=== PATIENT | male | born 1990 | race Caucasian/White ===

== ENCOUNTER 2016-12-18 06:35 | Emergency (ER) | payer SELFPAY ==
[2016-12-18] MEDS ORDERED: NORCO, ANEXSIA 5/325MG TABLET (HYDROcodone/ACETAMINOPHEN) As Ordered ONE (08:42)
[2016-12-18] MEDS ORDERED: AMOXICILLIN 500 MG CAP As Ordered ONE (08:42)
--- NOTE | 2016-12-18 08:50 | EDDOCDS ---
Nurse's Notes [facility] Name: Werner Rosas Age: 26 yrs Sex: Male : 1990 Arrival Date: 12/18/2016 Time: 06:35 Bed I2 / M2 Private MD: Diagnosis: Atypical facial pain-left upper dental Presentation: 12/18 07:44 Presenting complaint: Patient states: Pt presents with left upper dental pain x 2 weeks dls worse today. Adult Sepsis Screening: The patient does not have new or worsening altered mentation. Patient's respiratory rate is less than 22. Systolic blood pressure is greater than 100. Patient has a qSOFA score of 0- Negative Sepsis Screen. Suicide/Homicide risk assessment- the patient denies having any suicidal and/or homicidal ideations and does not present with any other emotional, behavioral or mental health complaints. 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 Transition of care: patient was not received from another setting of care. 07:44 Acuity: JOY Level 5 dls 07:44 Method Of Arrival: Walkin/Carried/Asstd dls Triage Assessment: 07:45 General: Appears distressed, well developed, Behavior is cooperative. Pain: Pain dls currently is 8 out of 10 on a pain scale. HIV screening NA for this visit Offered previously. Historical: - Allergies: no known allergies; - Home Meds: 1. none - PMHx: none; - PSHx: Appendectomy; - Social history: Smoking status: Patient uses tobacco products, light tobacco smoker. No barriers to communication noted, The patient speaks fluent Turkish. - Family history: Not pertinent. - : The pt / caregiver states he / she is not on anticoagulants. Home medication list is obtained from the patient. - Exposure Risk Screening:: None identified. Screenin:47 Screening information is obtained from the patient. Primary language is Turkish. Fall dls risk: No risks identified. Assistance ADL's: requires no assistance with activities of daily living. Abuse/DV Screen: The patient / caregiver reports he/she is: not in a situation that causes fear, pain or injury. Nutritional screening: No deficits noted. Advance Directives: Currently, there is no health care proxy. There is no active DNR order. There is no living will. There is no Power of Edge Finisher. Advance directive information has not previously been placed in an [facility] medical record. home support is adequate. Assessment: 08:46 General: See triage note. The patient / caregiver is instructed regarding the plan of dls care and ED course. Vital Signs: 07:51 BP 135 / 77; Pulse 99; Resp 18; Temp 97.8(T); Pulse Ox 99% on R/A; Weight 63.5 kg; dem1 Height 6 ft. 0 in. (182.88 cm); Pain 10/10; 07:51 Body Mass Index 18.99 (63.50 kg, 182.88 cm) dem1 Vitals: 07:45 Log In Time: December 18, 2016 at 06:37. dls ED Course: 06:36 Patient visited by Nuzhat Garcia, Reg. hs2 06:36 Patient moved to Waiting hs2 06:37 Patient visited by Nuzhat Garcia, Reg. hs2 07:45 Triage Initiated dls 07:47 Patient moved to I2 / M2 dls 07:51 Patient visited by Sergo Lynne. dem1 08:34 Kip Elam PA-C is PHCP. cc10 08:34 Vinny Valdez MD is Attending Physician. cc10 08:35 Patient visited by Kip Elam PA-C. cc10 08:35 Patient visited by Kip Elam PA-C. cc10 08:40 Your, Dentist is Referral Physician. cc10 08:47 Accompanied by Significant Other, Patient has correct armband on for positive dls identification. Bed in low position. Call light in reach. 08:49 No IV's were initiated during this patient's visit. No procedures done that require dls assistance. Administered Medications: 08:45 Drug: HYDROcodone-acetaminophen 2 tabs [hydrocodone 5 mg-acetaminophen 325 mg tablet (2 dls tabs)] Route: PO; 08:46 Follow up: Response: Pt left department before re-evaluation is appropriate dls 08:45 Drug: Amoxicillin 500 mg [amoxicillin 500 mg capsule (1 caps)] Route: PO; dls 08:45 Follow up: Response: Confirmed pt not driving.; Pt left department before re-evaluation dls is appropriate Order Results: There are currently no results for this order. Outcome: 08:40 Discharge ordered by Provider. cc10 08:47 The following High Risk Discharge criteria are identified: None. Discharged to home dls ambulatory, with significant other. Condition: stable. Discharge instructions given to patient, Instructed on discharge instructions, follow up and referral plans. medication usage, Demonstrated understanding of instructions, medications, Pt was receptive of discharge instructions/ teaching. Prescriptions given X 2. No special radiology studies were completed. 08:49 Discharge Assessment: Patient awake, alert and oriented x 3. No cognitive and/or dls functional deficits noted. Patient verbalized understanding of disposition instructions. patient administered narcotics - yes. Pt provided with safe discharge. The following High Risk Discharge criteria are identified: None. Discharged to home ambulatory, with significant other. Property sent home with patient. 08:50 Patient left the ED. dls Signatures: Radhika Tucker RN RN dls Sergo Lynne dem1 Kip Elam PA-C PA-C cc10 Nuzhat Garcia, Reg Reg hs2 MTDD
--- NOTE | 2016-12-18 08:50 | EDDOCDS ---
Physician Documentation [facility] Name: Werner Rosas Age: 26 yrs Sex: Male : 1990 Arrival Date: 12/18/2016 Time: 06:35 Bed I2 / M2 Private MD: Disposition: 12/18/16 08:40 Discharged to Home/Self Care. Impression: Atypical facial pain - left upper dental. - Condition is Stable. - Discharge Instructions: Dental Pain. - Prescriptions for Amoxicillin 500 mg Oral Capsule - take 1 capsule by ORAL route every 8 hours for 10 days; 30 tablet. Hydrocodone- Acetaminophen 5-325 mg Oral Tablet - take 1 tablet by ORAL route every 6 hours As needed MDD: 4 tabs; 16 tablet. - Medication Reconciliation, Local Pharmacy Hours, Dental Referral List form. - Follow up: Your, Dentist; When: Call to arrange an appointment; Reason: Wound/Symptom Recheck, Recheck today's complaints, Worsening of conditions, Continuance of care. - Problem is an ongoing problem. - Symptoms are unchanged. Historical: - Allergies: no known allergies; - Home Meds: 1. none - PMHx: none; - PSHx: Appendectomy; - Social history: Smoking status: Patient uses tobacco products, light tobacco smoker. No barriers to communication noted, The patient speaks fluent Kazakh. - Family history: Not pertinent. - : The pt / caregiver states he / she is not on anticoagulants. Home medication list is obtained from the patient. - Exposure Risk Screening:: None identified. Vital Signs: 12/18 07:51 BP 135 / 77; Pulse 99; Resp 18; Temp 97.8(T); Pulse Ox 99% on R/A; Weight 63.5 kg / dem1 139.99 lbs; Height 6 ft. 0 in. (182.88 cm); Pain 10/10; 07:51 Body Mass Index 18.99 (63.50 kg, 182.88 cm) dem1 MDM: 08:40 HYDROcodone-acetaminophen 5 mg-325 mg 2 tabs PO once ordered. cc10 08:40 Amoxicillin 500 mg PO once ordered. cc10 Administered Medications: 08:45 Drug: HYDROcodone-acetaminophen 2 tabs [hydrocodone 5 mg-acetaminophen 325 mg tablet (2 dls tabs)] Route: PO; 08:46 Follow up: Response: Pt left department before re-evaluation is appropriate dls 08:45 Drug: Amoxicillin 500 mg [amoxicillin 500 mg capsule (1 caps)] Route: PO; dls 08:45 Follow up: Response: Confirmed pt not driving.; Pt left department before re-evaluation dls is appropriate Signatures: Radhika Tucker RN RN dls Kip Elam PA-C PA-C cc10 MTDD
--- NOTE | 2016-12-20 09:51 | EDDOCDS ---
Physician Documentation [facility] Name: Werner Rosas Age: 26 yrs Sex: Male : 1990 Arrival Date: 12/18/2016 Time: 06:35 Bed I2 / M2 Private MD: Disposition: 12/18/16 08:40 Discharged to Home/Self Care. Impression: Atypical facial pain - left upper dental. - Condition is Stable. - Discharge Instructions: Dental Pain. - Prescriptions for Amoxicillin 500 mg Oral Capsule - take 1 capsule by ORAL route every 8 hours for 10 days; 30 tablet. Hydrocodone- Acetaminophen 5-325 mg Oral Tablet - take 1 tablet by ORAL route every 6 hours As needed MDD: 4 tabs; 16 tablet. - Medication Reconciliation, Local Pharmacy Hours, Dental Referral List form. - Follow up: Your, Dentist; When: Call to arrange an appointment; Reason: Wound/Symptom Recheck, Recheck today's complaints, Worsening of conditions, Continuance of care. - Problem is an ongoing problem. - Symptoms are unchanged. Historical: - Allergies: no known allergies; - Home Meds: 1. none - PMHx: none; - PSHx: Appendectomy; - Social history: Smoking status: Patient uses tobacco products, light tobacco smoker. No barriers to communication noted, The patient speaks fluent Maori. - Family history: Not pertinent. - : The pt / caregiver states he / she is not on anticoagulants. Home medication list is obtained from the patient. - Exposure Risk Screening:: None identified. Vital Signs: 12/18 07:51 BP 135 / 77; Pulse 99; Resp 18; Temp 97.8(T); Pulse Ox 99% on R/A; Weight 63.5 kg / dem1 139.99 lbs; Height 6 ft. 0 in. (182.88 cm); Pain 10/10; 07:51 Body Mass Index 18.99 (63.50 kg, 182.88 cm) dem1 MDM: 08:40 HYDROcodone-acetaminophen 5 mg-325 mg 2 tabs PO once ordered. cc10 08:40 Amoxicillin 500 mg PO once ordered. cc10 09:45 [facility] Payment Agreement was scanned into [employer] and attached to record. lg 15:43 T-Sheet-- Draft Copy was scanned into [employer] and attached to record. klr Administered Medications: 08:45 Drug: HYDROcodone-acetaminophen 2 tabs [hydrocodone 5 mg-acetaminophen 325 mg tablet (2 dls tabs)] Route: PO; 08:46 Follow up: Response: Pt left department before re-evaluation is appropriate dls 08:45 Drug: Amoxicillin 500 mg [amoxicillin 500 mg capsule (1 caps)] Route: PO; dls 08:45 Follow up: Response: Confirmed pt not driving.; Pt left department before re-evaluation dls is appropriate Signatures: Radhika Tucker RN RN dls Onel Shine, Servando Reg lg Kip Elam, PA-C PA-C cc10 Judie Mcbride The chart was reviewed and I authenticate all verbal orders and agree with the evaluation and treatment provided.Attachments: 09:45 [facility] Payment Agreement lg 15:43 T-Sheet-- Draft Copy klr Chart Complete MTDD
--- NOTE | 2016-12-20 09:51 | EDDOCDS ---
Physician Documentation [facility] Name: Werner Rosas Age: 26 yrs Sex: Male : 1990 Arrival Date: 12/18/2016 Time: 06:35 Bed I2 / M2 Private MD: Disposition: 12/18/16 08:40 Discharged to Home/Self Care. Impression: Atypical facial pain - left upper dental. - Condition is Stable. - Discharge Instructions: Dental Pain. - Prescriptions for Amoxicillin 500 mg Oral Capsule - take 1 capsule by ORAL route every 8 hours for 10 days; 30 tablet. Hydrocodone- Acetaminophen 5-325 mg Oral Tablet - take 1 tablet by ORAL route every 6 hours As needed MDD: 4 tabs; 16 tablet. - Medication Reconciliation, Local Pharmacy Hours, Dental Referral List form. - Follow up: Your, Dentist; When: Call to arrange an appointment; Reason: Wound/Symptom Recheck, Recheck today's complaints, Worsening of conditions, Continuance of care. - Problem is an ongoing problem. - Symptoms are unchanged. Historical: - Allergies: no known allergies; - Home Meds: 1. none - PMHx: none; - PSHx: Appendectomy; - Social history: Smoking status: Patient uses tobacco products, light tobacco smoker. No barriers to communication noted, The patient speaks fluent Swedish. - Family history: Not pertinent. - : The pt / caregiver states he / she is not on anticoagulants. Home medication list is obtained from the patient. - Exposure Risk Screening:: None identified. Vital Signs: 12/18 07:51 BP 135 / 77; Pulse 99; Resp 18; Temp 97.8(T); Pulse Ox 99% on R/A; Weight 63.5 kg / dem1 139.99 lbs; Height 6 ft. 0 in. (182.88 cm); Pain 10/10; 07:51 Body Mass Index 18.99 (63.50 kg, 182.88 cm) dem1 MDM: 08:40 HYDROcodone-acetaminophen 5 mg-325 mg 2 tabs PO once ordered. cc10 08:40 Amoxicillin 500 mg PO once ordered. cc10 09:45 [facility] Payment Agreement was scanned into [employer] and attached to record. lg 15:43 T-Sheet-- Draft Copy was scanned into [employer] and attached to record. klr Administered Medications: 08:45 Drug: HYDROcodone-acetaminophen 2 tabs [hydrocodone 5 mg-acetaminophen 325 mg tablet (2 dls tabs)] Route: PO; 08:46 Follow up: Response: Pt left department before re-evaluation is appropriate dls 08:45 Drug: Amoxicillin 500 mg [amoxicillin 500 mg capsule (1 caps)] Route: PO; dls 08:45 Follow up: Response: Confirmed pt not driving.; Pt left department before re-evaluation dls is appropriate Signatures: Radhika Tucker RN RN dls Onel Shine, Servando Reg lg Kip Elam, PA-C PA-C cc10 Judie Mcbride The chart was reviewed and I authenticate all verbal orders and agree with the evaluation and treatment provided.Attachments: 09:45 [facility] Payment Agreement lg 15:43 T-Sheet-- Draft Copy klr Chart Complete MTDD
--- NOTE | 2016-12-20 09:51 | EDDOCDS ---
Nurse's Notes [facility] Name: Werner Rosas Age: 26 yrs Sex: Male : 1990 Arrival Date: 12/18/2016 Time: 06:35 Bed I2 / M2 Private MD: Diagnosis: Atypical facial pain-left upper dental Presentation: 12/18 07:44 Presenting complaint: Patient states: Pt presents with left upper dental pain x 2 weeks dls worse today. Adult Sepsis Screening: The patient does not have new or worsening altered mentation. Patient's respiratory rate is less than 22. Systolic blood pressure is greater than 100. Patient has a qSOFA score of 0- Negative Sepsis Screen. Suicide/Homicide risk assessment- the patient denies having any suicidal and/or homicidal ideations and does not present with any other emotional, behavioral or mental health complaints. Status: Patient is not a hotel or motel room service supervisor or dependent. Transition of care: patient was not received from another setting of care. 07:44 Acuity: JOY Level 5 dls 07:44 Method Of Arrival: Walkin/Carried/Asstd dls Triage Assessment: 07:45 General: Appears distressed, well developed, Behavior is cooperative. Pain: Pain dls currently is 8 out of 10 on a pain scale. HIV screening NA for this visit Offered previously. Historical: - Allergies: no known allergies; - Home Meds: 1. none - PMHx: none; - PSHx: Appendectomy; - Social history: Smoking status: Patient uses tobacco products, light tobacco smoker. No barriers to communication noted, The patient speaks fluent Maori. - Family history: Not pertinent. - : The pt / caregiver states he / she is not on anticoagulants. Home medication list is obtained from the patient. - Exposure Risk Screening:: None identified. Screenin:47 Screening information is obtained from the patient. Primary language is Maori. Fall dls risk: No risks identified. Assistance ADL's: requires no assistance with activities of daily living. Abuse/DV Screen: The patient / caregiver reports he/she is: not in a situation that causes fear, pain or injury. Nutritional screening: No deficits noted. Advance Directives: Currently, there is no health care proxy. There is no active DNR order. There is no living will. There is no Power of Physician'S Aide. Advance directive information has not previously been placed in an [facility] medical record. home support is adequate. Assessment: 08:46 General: See triage note. The patient / caregiver is instructed regarding the plan of dls care and ED course. Vital Signs: 07:51 BP 135 / 77; Pulse 99; Resp 18; Temp 97.8(T); Pulse Ox 99% on R/A; Weight 63.5 kg; dem1 Height 6 ft. 0 in. (182.88 cm); Pain 10/10; 07:51 Body Mass Index 18.99 (63.50 kg, 182.88 cm) dem1 Vitals: 07:45 Log In Time: December 18, 2016 at 06:37. dls ED Course: 06:36 Patient visited by Nuzhat Garcia, Reg. hs2 06:36 Patient moved to Waiting hs2 06:37 Patient visited by Nuzhat Garcia, Reg. hs2 07:45 Triage Initiated dls 07:47 Patient moved to I2 / M2 dls 07:51 Patient visited by Sergo Lynne. dem1 08:34 Kip Elam PA-C is PHCP. cc10 08:34 Vinny Valdez MD is Attending Physician. cc10 08:35 Patient visited by Kip Elam PA-C. cc10 08:35 Patient visited by Kip Elam PA-C. cc10 08:40 Your, Dentist is Referral Physician. cc10 08:47 Accompanied by Significant Other, Patient has correct armband on for positive dls identification. Bed in low position. Call light in reach. 08:49 No IV's were initiated during this patient's visit. No procedures done that require dls assistance. 09:45 [facility] [place] Agreement was scanned into [employer] and attached to record. lg 15:43 T-Sheet-- Draft Copy was scanned into [employer] and attached to record. klr Administered Medications: 08:45 Drug: HYDROcodone-acetaminophen 2 tabs [hydrocodone 5 mg-acetaminophen 325 mg tablet (2 dls tabs)] Route: PO; 08:46 Follow up: Response: Pt left department before re-evaluation is appropriate dls 08:45 Drug: Amoxicillin 500 mg [amoxicillin 500 mg capsule (1 caps)] Route: PO; dls 08:45 Follow up: Response: Confirmed pt not driving.; Pt left department before re-evaluation dls is appropriate Order Results: There are currently no results for this order. Outcome: 08:40 Discharge ordered by Provider. cc10 08:47 The following High Risk Discharge criteria are identified: None. Discharged to home dls ambulatory, with significant other. Condition: stable. Discharge instructions given to patient, Instructed on discharge instructions, follow up and referral plans. medication usage, Demonstrated understanding of instructions, medications, Pt was receptive of discharge instructions/ teaching. Prescriptions given X 2. No special radiology studies were completed. 08:49 Discharge Assessment: Patient awake, alert and oriented x 3. No cognitive and/or dls functional deficits noted. Patient verbalized understanding of disposition instructions. patient administered narcotics - yes. Pt provided with safe discharge. The following High Risk Discharge criteria are identified: None. Discharged to home ambulatory, with significant other. Property sent home with patient. 08:50 Patient left the ED. dls Signatures: Radhika Tucker, RN RN dls Onel Shine, Reg Reg lg Sergo Lynne dem1 Kip Elam, ARSENIO PA-C cc10 Nuzhat Garcia, Reg Reg hs2 Judie Mcbride Chart Complete MTDD
== END 2016-12-18 08:50 | disposition home or self-care (01) ==
LOC: M ED 06:35
DX: G50.1 Atypical facial pain (principal); Z72.0 Tobacco use

== ENCOUNTER 2017-03-12 23:04 | Emergency (ER) | payer SELFPAY ==
[2017-03-12 23:32] LABS: MEAN CORPUSCULAR HEMOGLOBIN 33.4 pg (27.0-33.0); MEAN CORPUSCULAR HGB CONC 34.7 g/dl (32.0-36.5); MEAN CORPUSCULAR VOLUME 96.3 fl (80.0-96.0); RED CELL DISTRIBUTION WIDTH 12.6 % (11.5-14.5); WHITE BLOOD COUNT 10.9 K/mm3 (4.0-10.0)
[2017-03-12 23:53] LABS: ALBUMIN 4.5 GM/DL (3.2-5.2); ALBUMIN/GLOBULIN RATIO 1.18 (1.00-1.93); ALKALINE PHOSPHATASE 87 U/L (45-117); ALT/SGPT 79 U/L (12-78); ANION GAP 10 MEQ/L (8-16); AST/SGOT 101 U/L (15-37); BILIRUBIN,DIRECT 0.4 MG/DL (0.0-0.2); BLOOD UREA NITROGEN 7 MG/DL (7-18); CALCIUM LEVEL 10.6 MG/DL (8.5-10.1); CARBON DIOXIDE LEVEL 26 MEQ/L (21-32); CHLORIDE LEVEL 104 MEQ/L (98-107); CREATININE FOR GFR 1.08 MG/DL (0.70-1.30); GLOMERULAR FILTRATION RATE > 60.0 (>60); GLUCOSE, FASTING 89 MG/DL (70-105); POTASSIUM SERUM 3.9 MEQ/L (3.5-5.1); SODIUM LEVEL 140 MEQ/L (136-145); TOTAL PROTEIN 8.3 GM/DL (6.4-8.2)
[2017-03-13 00:06] LABS: METHADONE URINE NEGATIVE (NEGATIVE)
[2017-03-13] MEDS ORDERED: METAL LOCK LOOP XX ONE (04:40)
[2017-03-13 10:02] VITALS: BP 133/64
== END 2017-03-13 10:05 | disposition home or self-care (01) ==
LOC: M ED 03-13 07:44
DX: F19.10 Other psychoactive substance abuse, uncomplicated (principal); J45.909 Unspecified asthma, uncomplicated; G47.00 Insomnia, unspecified; F17.200 Nicotine dependence, unspecified, uncomplicated
CPT/HCPCS: 36415; 80048; 80076; 80306; 84443; 85027; 99284; G0480

== ENCOUNTER 2017-06-03 02:19 | Emergency (ER) | payer SELFPAY ==
[~2017-06-03] VITALS: Ht 180.3 cm; Wt 70.5 kg
[2017-06-03 02:28] VITALS: BP 120/73
== END 2017-06-03 04:45 | disposition left against medical advice (07) ==
LOC: M ED 02:19
DX: S01.319A Laceration without foreign body of unspecified ear, initial encounter (principal); X58.XXXA Exposure to other specified factors, initial encounter; Y92.89 Other specified places as the place of occurrence of the external cause; Y93.89 Activity, other specified; Y99.8 Other external cause status; Z53.29 Procedure and treatment not carried out because of patient's decision for other reasons

== ENCOUNTER 2017-06-12 21:20 | Emergency (ER) | payer SELFPAY ==
[~2017-06-12] VITALS: Ht 177.8 cm; Wt 70.5 kg
[2017-06-12 21:20] VITALS: BP 135/77
== END 2017-06-12 22:24 | disposition left against medical advice (07) ==
LOC: M ED 22:14
DX: S69.90XA Unspecified injury of unspecified wrist, hand and finger(s), initial encounter (principal); X58.XXXA Exposure to other specified factors, initial encounter; Y92.89 Other specified places as the place of occurrence of the external cause; Y93.89 Activity, other specified; Y99.8 Other external cause status; Z53.29 Procedure and treatment not carried out because of patient's decision for other reasons

== ENCOUNTER 2018-02-17 21:43 | Emergency (ER) | payer MEDICAID, SELFPAY ==
[2018-02-17] MEDS: LIDOCAINE VISCOUS 2% SOLN 15ML UDC SSP (23:47)
[2018-02-17] MEDS: CLINDAMYCIN 150 MG CAP PO (23:47)
== END 2018-02-17 23:50 | disposition home or self-care (01) ==
LOC: M ED 23:50
DX: K04.7 Periapical abscess without sinus (principal); F41.9 Anxiety disorder, unspecified; F33.9 Major depressive disorder, recurrent, unspecified; F90.9 Attention-deficit hyperactivity disorder, unspecified type; F17.210 Nicotine dependence, cigarettes, uncomplicated
CPT/HCPCS: 99282

== ENCOUNTER 2018-03-07 21:52 | Emergency (ER) | payer MEDICAID | END 2018-03-08 00:41 | disposition home or self-care (01) | LOC: M ED 21:52 | DX: Z76.0 Encounter for issue of repeat prescription (principal); J45.909 Unspecified asthma, uncomplicated; F90.9 Attention-deficit hyperactivity disorder, unspecified type; F41.9 Anxiety disorder, unspecified; F33.9 Major depressive disorder, recurrent, unspecified; F17.210 Nicotine dependence, cigarettes, uncomplicated | CPT/HCPCS: 99283 ==

== ENCOUNTER → 2018-05-23 | Outpatient (REF) | payer MEDICAID ==
[2018-05-23 18:18] LABS: AMORPHOUS SEDIMENT MODERATE (NEGATIVE); APPEARANCE, URINE CLOUDY (CLEAR); BACTERIA, URINE AUTO NEGATIVE (NEGATIVE); BILIRUBIN, URINE AUTO NEGATIVE (NEGATIVE); BLOOD, URINE BLOOD NEGATIVE (NEGATIVE); COLOR, URINE YELLOW (YELLOW); GLUCOSE, URINE (UA) AUTO NEGATIVE (NEGATIVE); KETONE, URINE AUTO NEGATIVE (NEGATIVE); LEUKOCYTE ESTERASE, URINE AUTO NEGATIVE (NEGATIVE); MUCUS, URINE SMALL (NEGATIVE); NITRITE, URINE AUTO POSITIVE (NEGATIVE); PROTEIN, URINE AUTO NEGATIVE (NEGATIVE); RBC, URINE AUTO 2 /HPF (0-3); SPECIFIC GRAVITY URINE AUTO 1.018 (1.002-1.035); SQUAMOUS EPITHELIAL CELL UR AU 0 /HPF (0-6); UROBILINOGEN, URINE AUTO 0.2 mg/dL (0.0-2.0); WBC, URINE AUTO 2 /HPF (0-3)
== END ==
LOC: M LAB REF 16:30
DX: N39.0 Urinary tract infection, site not specified (principal)

== ENCOUNTER → 2018-05-25 | Outpatient (CLI) | payer MEDICAID | LOC: M OUTALCOH 08:15 | DX: Z13.9 Encounter for screening, unspecified (principal); F12.20 Cannabis dependence, uncomplicated; F10.20 Alcohol dependence, uncomplicated ==

== ENCOUNTER 2018-06-22 05:53 | Emergency (ER) | payer MEDICAID | END 2018-06-22 07:30 | disposition home or self-care (01) | LOC: M ED 05:53 | DX: K04.7 Periapical abscess without sinus (principal); F17.210 Nicotine dependence, cigarettes, uncomplicated | CPT/HCPCS: 99282 ==

== ENCOUNTER 2018-07-03 08:52 | Outpatient (RCR) | payer MEDICAID | END 2018-07-23 | LOC: M OUTALCOH 07-06 14:00 | DX: F12.20 Cannabis dependence, uncomplicated (principal); F10.20 Alcohol dependence, uncomplicated; F15.20 Other stimulant dependence, uncomplicated; F14.20 Cocaine dependence, uncomplicated; F17.200 Nicotine dependence, unspecified, uncomplicated ==

== ENCOUNTER 2018-07-18 11:03 | Emergency (ER) | payer OTHER, MEDICAID | END 2018-07-18 12:35 | disposition home or self-care (01) | LOC: M ED 11:03 | DX: S50.11XA Contusion of right forearm, initial encounter (principal); M25.531 Pain in right wrist; X58.XXXA Exposure to other specified factors, initial encounter; Y92.9 Unspecified place or not applicable; Y93.9 Activity, unspecified; Y99.9 Unspecified external cause status; F90.9 Attention-deficit hyperactivity disorder, unspecified type; Z72.0 Tobacco use | CPT/HCPCS: 73090 ==

== ENCOUNTER 2021-04-19 14:05 | Emergency (ER) | payer OTHER ==
[~2021-04-19] VITALS: Ht 180.3 cm; Wt 70.0 kg
[~2021-04-19 14:05] MED LIST: CLEO300C2 PO; IBUP-1022 PO; IBUP1TAB7 PO; IBUP80TA PO; LIDO2SOL17 SSP; MAGICMW SSP; PROAAER10 INH
[2021-04-19] MEDS ORDERED: TETRACAINE 0.5% OPHTH SOLN 4ML OU ONE (16:20)
[2021-04-19] MEDS ORDERED: FLUORESCEIN OPHTH 1 MG STRIP OU ONE (16:20)
[2021-04-19] MEDS ORDERED: POLYTRIM OPTH DROPS 10ML OU STA (17:32)
[2021-04-19] MEDS ORDERED: POLYSOL OP (17:36)
[2021-04-19 17:58] VITALS: BP 136/75
== END 2021-04-19 18:02 | disposition home or self-care (01) ==
LOC: M ED 14:05
DX: H10.023 Other mucopurulent conjunctivitis, bilateral (principal); F17.200 Nicotine dependence, unspecified, uncomplicated

== ENCOUNTER 2023-07-29 01:14 | Observation (INO) | payer OTHER ==
[~2023-07-29] VITALS: Ht 180.3 cm; Wt 68.5 kg
[~2023-07-29 01:14] MED LIST changes: +LIDO15SO SSP; -LIDO2SOL17 SSP; +POLYSOL OP
[2023-07-29] MEDS ORDERED: AMPICILLIN SOD/SULBACTAM SOD 3 GM in D5W MINI-BAG PLUS 100 ML IV ONE (06:15)
[2023-07-29] MEDS ORDERED: NS 1,000 ML IV ONE (06:15)
[2023-07-29] MEDS ORDERED: dexAMETHasone 20MG/5ML VIAL IV ONE (06:15)
[2023-07-29] MEDS ORDERED: ACETAMINOPHEN 500 MG TAB PO ONE (06:20)
[2023-07-29] MEDS ORDERED: ISOVUE-370 76% 100ML VIAL As Ordered ONE (07:12)
[2023-07-29 07:13] LABS: BASO % 0.2 % (0.0-1.0); EOS % 0.2 % (0.0-3.0); HEMATOCRIT 38.3 % (42.0-52.0); LYMPH # 1.5 10^3/uL (1.5-5.0); LYMPH % 8.8 % (24.0-44.0); MEAN CORPUSCULAR HEMOGLOBIN 31.9 pg (27.0-33.0); MEAN CORPUSCULAR HGB CONC 33.9 g/dl (32.0-36.5); MEAN CORPUSCULAR VOLUME 93.9 fl (80.0-96.0); MONO % 10.4 % (2.0-8.0); NEUTROPHILS # 13.4 10^3/uL (1.5-8.5); NEUTROPHILS % 80.1 % (36.0-66.0); PLATELET COUNT, AUTOMATED 280 10^3/uL (150-450); RED BLOOD COUNT 4.08 10^6/uL (4.30-6.10); WHITE BLOOD COUNT 16.7 10^3/uL (4.0-10.0)
[2023-07-29 07:37] LABS: MONO # 1.7 10^3/uL (0.0-0.8)
[2023-07-29 07:41] LABS: RSV AMPLIFICATION NEGATIVE (NEGATIVE)
[2023-07-29 07:42] LABS: C REACTIVE PROTEIN QUANTITATIV 15.3 MG/DL (<1.0)
[2023-07-29 08:11] LABS: ERYTHROCYTE SEDIMENTATION RATE 57 mm/hr (0-15)
[2023-07-29] MEDS ORDERED: CETACAINE SPRAY 5GM TOP ONE (08:15)
[2023-07-29] MEDS ORDERED: LIDOCAINE W/EPINEPHRINE 1% 20ML VIAL SC ONE (08:15)
[2023-07-29] MEDS ORDERED: MED REC IN PROGRESS XX SCH (08:20)
[2023-07-29] MEDS ORDERED: HOME MED LIST COMPLETE! XX SCH (08:30)
[2023-07-29] MEDS ORDERED: MOM 30ML SUSPENSION UDC PO PRN (09:55)
[2023-07-29] MEDS ORDERED: ACETAMINOPHEN TAB 650MG DOSE (2X325MG) PO PRN (09:55)
[2023-07-29 10:58] LABS: PTH INTACT 89.8 PG/ML (18.5-88.0)
[2023-07-29 11:02] LABS: TOTAL 25(OH) VITAMIN D 18.3 NG/ML (20.0-100.0)
[2023-07-29] MEDS: DOCUSATE SODIUM 100MG CAPSULE PO SCH ×2 (12:12→20:04)
[2023-07-29] MEDS: AMPICILLIN SOD/SULBACTAM SOD 3 GM in D5W MINI-BAG PLUS 100 ML IV SCH ×2 (12:13→17:21)
[2023-07-29] MEDS: dexAMETHasone 20MG/5ML VIAL IV SCH ×2 (14:29→21:42)
[2023-07-29 16:20] VITALS: BP 114/70; TEMP 97.7; O2SAT 98
[2023-07-29] MEDS ORDERED: KETOROLAC 30 MG/ML 1ML VIAL IV PRN ×2 (18:45)
[2023-07-29 22:00] VITALS: BP 103/68; TEMP 98.1; O2SAT 94
[2023-07-30] MEDS: AMPICILLIN SOD/SULBACTAM SOD 3 GM in D5W MINI-BAG PLUS 100 ML IV SCH ×2 (00:20→05:39)
[2023-07-30] MEDS: dexAMETHasone 20MG/5ML VIAL IV SCH (05:39)
[2023-07-30 06:00] VITALS: BP 106/61; TEMP 98.1; O2SAT 99
[2023-07-30 07:26] LABS: BASO % 0.2 % (0.0-1.0); HEMATOCRIT 40.6 % (42.0-52.0); HEMOGLOBIN 13.7 g/dl (13.5-17.5); LYMPH # 1.2 10^3/uL (1.5-5.0); LYMPH % 4.8 % (24.0-44.0); MEAN CORPUSCULAR HEMOGLOBIN 31.2 pg (27.0-33.0); MEAN CORPUSCULAR HGB CONC 33.7 g/dl (32.0-36.5); MEAN CORPUSCULAR VOLUME 92.5 fl (80.0-96.0); MONO # 1.1 10^3/uL (0.0-0.8); MONO % 4.6 % (2.0-8.0); NEUTROPHILS # 21.9 10^3/uL (1.5-8.5); NEUTROPHILS % 89.6 % (36.0-66.0); PLATELET COUNT, AUTOMATED 331 10^3/uL (150-450); RED BLOOD COUNT 4.39 10^6/uL (4.30-6.10); WHITE BLOOD COUNT 24.4 10^3/uL (4.0-10.0)
[2023-07-30 07:59] LABS: BLOOD UREA NITROGEN 15 MG/DL (9-23); CALCIUM LEVEL 11.3 MG/DL (8.5-10.1); CARBON DIOXIDE LEVEL 29 MMOL/L (20-31); CHLORIDE LEVEL 106 MMOL/L (98-107); CREATININE FOR GFR 0.67 MG/DL (0.70-1.30); GLOMERULAR FILTRATION RATE > 60.0 (>60); GLUCOSE, FASTING 155 MG/DL (60-100); POTASSIUM SERUM 4.1 MMOL/L (3.5-5.1); SODIUM LEVEL 142 MMOL/L (136-145)
[2023-07-30] MEDS: DOCUSATE SODIUM 100MG CAPSULE PO SCH (08:14)
[2023-07-30] MEDS ORDERED: NS 1,000 ML IV SCH (09:30)
[2023-07-30] MEDS ORDERED: VITAMIN D (CHOLECALCIFEROL) 400 INTERNATIONAL UNITS TAB PO SCH (09:35)
[2023-07-30] MEDS ORDERED: AMOX875T2 PO (11:09)
[2023-07-30] MEDS ORDERED: VITAD400CA PO (11:22)
[2023-07-30] MEDS ORDERED: IBUP-1114 PO (11:22)
== END 2023-07-30 13:10 | disposition home or self-care (01) ==
LOC: M ED 01:14 → M ED INP 09:55 → ENRESERV 15:10 → M MS5PR 16:20
PROVIDERS: ADMIT Student in an Organized Health Care Education/Training Program; ATTEND Student in an Organized Health Care Education/Training Program
DX: J36 Peritonsillar abscess (principal); B95.0 Streptococcus, group A, as the cause of diseases classified elsewhere; F19.90 Other psychoactive substance use, unspecified, uncomplicated; E83.52 Hypercalcemia; L98.9 Disorder of the skin and subcutaneous tissue, unspecified; D72.828 Other elevated white blood cell count; Z79.52 Long term (current) use of systemic steroids; R06.89 Other abnormalities of breathing; R13.10 Dysphagia, unspecified; R06.02 Shortness of breath; K02.9 Dental caries, unspecified; F17.200 Nicotine dependence, unspecified, uncomplicated; Z88.1 Allergy status to other antibiotic agents; Z79.2 Long term (current) use of antibiotics
CPT/HCPCS: 31575; 36415; 42700; 70491; 80047; 80048; 82306; 82330; 83605; 83970; 85025; 85652; 86140; 87040; 87070; 87075; 87076; 87077; 87186; 87631; 87880; 94760; 96365; 96366; 96372; 96375; 96376; 99285; J0295; J1100; Q9967

== ENCOUNTER 2024-08-11 03:17 | Emergency (ER) | payer OTHER, SELFPAY ==
[~2024-08-11] VITALS: Ht 180.3 cm; Wt 70.1 kg
[~2024-08-11 03:17] MED LIST changes: +AMOX875T2 PO; +IBUP-1114 PO; -LIDO15SO SSP; +LIDO15SO8 SSP; +VITAD400CA PO
[2024-08-11 06:53] LABS: BASO # 0.1 10^3/uL (0.0-0.2); BASO % 0.3 % (0.0-1.0); EOS % 0.3 % (0.0-3.0); HEMATOCRIT 44.8 % (42.0-52.0); HEMOGLOBIN 15.2 g/dl (13.5-17.5); LYMPH # 1.4 10^3/uL (1.5-5.0); LYMPH % 9.6 % (24.0-44.0); MEAN CORPUSCULAR HEMOGLOBIN 31.5 pg (27.0-33.0); MEAN CORPUSCULAR HGB CONC 33.9 g/dl (32.0-36.5); MEAN CORPUSCULAR VOLUME 92.8 fl (80.0-96.0); MONO # 1.2 10^3/uL (0.0-0.8); MONO % 8.5 % (2.0-8.0); NEUTROPHILS # 11.7 10^3/uL (1.5-8.5); PLATELET COUNT, AUTOMATED 232 10^3/uL (150-450); RED BLOOD COUNT 4.83 10^6/uL (4.30-6.10); WHITE BLOOD COUNT 14.4 10^3/uL (4.0-10.0)
[2024-08-11] MEDS: AMPICILLIN SOD/SULBACTAM SOD 3 GM in D5W MINI-BAG PLUS 100 ML IV ONE (06:55)
[2024-08-11] MEDS ORDERED: ISOVUE-370 76% 100ML VIAL As Ordered ONE (07:11)
[2024-08-11] MEDS: dexAMETHasone 20MG/5ML VIAL IV ONE (10:18)
[2024-08-11] MEDS: LIDOCAINE W/EPINEPHRINE 1% 20ML VIAL SC ONE (10:18)
[2024-08-11] MEDS ORDERED: MEDR4PAK PO (10:49)
[2024-08-11] MEDS ORDERED: AMOX875T2 PO (10:49)
[2024-08-11 11:00] VITALS: BP 156/84; TEMP 98; O2SAT 100
== END 2024-08-11 11:50 | disposition home or self-care (01) ==
LOC: M ED 03:17
DX: J36 Peritonsillar abscess (principal); F90.9 Attention-deficit hyperactivity disorder, unspecified type; F17.210 Nicotine dependence, cigarettes, uncomplicated; F19.10 Other psychoactive substance abuse, uncomplicated; Z88.1 Allergy status to other antibiotic agents; Z79.1 Long term (current) use of non-steroidal anti-inflammatories (NSAID); Z79.2 Long term (current) use of antibiotics; Z79.899 Other long term (current) drug therapy
CPT/HCPCS: 42700; 70491; 80047; 85025; 87486; 87581; 87633; 87798; 87880; 96372; 96374; 96375; 99284; J0295; J1100; Q9967

== ENCOUNTER 2025-09-23 04:37 | Inpatient (IN) | payer SELFPAY ==
[~2025-09-23] VITALS: Ht 175.3 cm; Wt 68.5 kg
[2025-09-23] VITALS (8 sets, daily range): BP systolic 96–111; BP diastolic 57–65; TEMP 96.5–98.2; O2SAT 98–100
[~2025-09-23 04:37] MED LIST changes: -IBUP-1022 PO; +IBUP600T42 PO; +MEDR4PAK PO
[2025-09-23] MEDS ORDERED: IBUP1TAB7 PO (04:46)
[2025-09-23 05:17] LABS: BASO # 0.1 10^3/uL (0.0-0.2); BASO % 0.3 % (0.0-1.0); EOS # 0.0 10^3/uL (0.0-0.5); EOS % 0.0 % (0.0-3.0); LYMPH # 1.0 10^3/uL (1.5-5.0); LYMPH % 4.6 % (24.0-44.0); MONO # 1.4 10^3/uL (0.0-0.8); MONO % 6.4 % (2.0-8.0); NEUTROPHILS # 19.6 10^3/uL (1.5-8.5); NEUTROPHILS % 88.3 % (36.0-66.0); PLATELET COUNT, AUTOMATED 296 10^3/uL (150-450)
[2025-09-23] MEDS ORDERED: ISOVUE-370 76% 100 ML VIAL As Ordered ONE (05:37)
[2025-09-23 05:40] LABS: INR 1.14
[2025-09-23] MEDS: MORPHINE 2 MG/ML 1 ML VIAL IV ONE (05:40)
[2025-09-23 05:46] LABS: ALT/SGPT 17.0 U/L (7.0-40); AST/SGOT 14.0 U/L (<34); CALCIUM LEVEL 11.2 MG/DL (8.5-10.1); CARBON DIOXIDE LEVEL 30.0 MMOL/L (20-31); CHLORIDE LEVEL 97.0 MMOL/L (98-107); CREATININE FOR GFR 1.11 MG/DL (0.70-1.30); GLOMERULAR FILTRATION RATE 89.4 (>60); POTASSIUM SERUM 3.9 MMOL/L (3.5-5.1); SODIUM LEVEL 136.0 MMOL/L (136-145)
[2025-09-23] MEDS: ACETAMINOPHEN *IV* 1,000 MG in IV 1 EA IV ONE (05:48)
[2025-09-23] MEDS: AMPICILLIN SOD/SULBACTAM SOD 3 GM in DEXTROSE 5% (D5W) MINI-BAG PLU 100 ML IV ONE (06:16)
[2025-09-23 06:50] LABS: C REACTIVE PROTEIN QUANTITATIV 19.68 MG/DL (<1.0)
[2025-09-23] MEDS ORDERED: LIDOCAINE 2% 100 MG/5 ML SDV (FOR ANES.) As Ordered ONE (06:54)
[2025-09-23] MEDS ORDERED: SUGAMMADEX SODIUM 500 MG/5 ML VIAL As Ordered ONE (06:54)
[2025-09-23] MEDS ORDERED: ROCURONIUM BROMIDE 50MG/5ML VIAL As Ordered ONE (06:54)
[2025-09-23] MEDS ORDERED: dexAMETHasone 4 MG/ML 1 ML VIAL As Ordered ONE (06:54)
[2025-09-23] MEDS ORDERED: ONDANSETRON 4MG/2ML VIAL As Ordered ONE (06:54)
[2025-09-23] MEDS ORDERED: MIDAZOLAM INJ 2 MG/2 ML VIAL As Ordered ONE (07:12)
[2025-09-23] MEDS: LIDOCAINE W/EPINEPHrine 1% 20 ML VIAL As Ordered ONE (07:59)
[2025-09-23] MEDS ORDERED: ACETAMINOPHEN 1000MG/100ML IV BAG As Ordered ONE (08:02)
[2025-09-23] MEDS ORDERED: MAGIC MOUTHWASH 5 ML ORAL SYRINGE SSP PRN (09:10)
[2025-09-23] MEDS ORDERED: KETOROLAC 30 MG/ML 1 ML VIAL IV PRN (09:10)
[2025-09-23] MEDS ORDERED: HOME MED LIST COMPLETE! XX SCH (12:05)
[2025-09-23] MEDS: AMPICILLIN SOD/SULBACTAM SOD 3 GM in DEXTROSE 5% (D5W) MINI-BAG PLU 100 ML IV SCH (12:59)
[2025-09-23] MEDS: ACETAMINOPHEN 500 MG TAB PO SCH (13:00)
[2025-09-23] MEDS: dexAMETHasone 4 MG/ML 1 ML VIAL IV SCH (13:40)
[2025-09-23] MEDS ORDERED: NALOXONE INJ 0.4 MG/1 ML VIAL IV PRN (18:25)
[2025-09-23] MEDS: NALOXONE INJ 0.4 MG/1 ML VIAL IV STA (18:35)
[2025-09-23 19:59] LABS: ETHYL ALCOHOL (ETHANOL) 0.003 % (0.000-0.010)
[2025-09-23] MEDS: HEPARIN SOD 5000 UNITS/ML 1 ML VIAL/SYRINGE SQ SCH (20:35)
[2025-09-23] MEDS ORDERED: LR 1,000 ML IV SCH (20:55)
[2025-09-23 22:17] LABS: PTH INTACT 82.3 PG/ML (18.5-88.0)
[2025-09-23 22:18] LABS: TOTAL 25(OH) VITAMIN D 9.2 NG/ML (20.0-100.0)
[2025-09-23 22:23] LABS: AMORPHOUS SEDIMENT SMALL (NEGATIVE); APPEARANCE, URINE CLOUDY (CLEAR); BACTERIA, URINE AUTO NEGATIVE (NEGATIVE); BILIRUBIN, URINE AUTO NEGATIVE (NEGATIVE); BLOOD, URINE BLOOD 1+ (NEGATIVE); GLUCOSE, URINE (UA) AUTO 3+ mg/dL (NEGATIVE); KETONE, URINE AUTO NEGATIVE (NEGATIVE); LEUKOCYTE ESTERASE, URINE AUTO NEGATIVE (NEGATIVE); MUCUS, URINE SMALL (NEGATIVE); NITRITE, URINE AUTO NEGATIVE (NEGATIVE); PROTEIN, URINE AUTO NEGATIVE (NEGATIVE); RBC, URINE AUTO 26 /HPF (0-3); SPECIFIC GRAVITY URINE AUTO 1.025 (1.002-1.035); SQUAMOUS EPITHELIAL CELL UR AU 0 /HPF (0-6); UROBILINOGEN, URINE AUTO 2.0 mg/dL (0.0-2.0); WBC, URINE AUTO 1 /HPF (0-3)
[2025-09-24] MEDS ORDERED: AMOX875T2 PO (00:05)
== END 2025-09-23 22:31 | disposition left against medical advice (07) | DRG 710 ==
LOC: M ED 04:37 → M SDC 04:38 → M MS4PR 09:05 → M SDC 22:31
PROVIDERS: ADMIT Otolaryngology; ATTEND Otolaryngology
PROC: 0C9PXZZ Drainage of Tonsils, External Approach (ICD-10-PCS; principal; 2025-09-23 06:41)
DX: A41.9 Sepsis, unspecified organism (principal); E83.52 Hypercalcemia; Z79.899 Other long term (current) drug therapy; J36 Peritonsillar abscess; F15.10 Other stimulant abuse, uncomplicated; F17.200 Nicotine dependence, unspecified, uncomplicated; F12.10 Cannabis abuse, uncomplicated; Z90.49 Acquired absence of other specified parts of digestive tract